=== PATIENT | male | born 1950 | race African-American/Black ===

== ENCOUNTER 2018-08-08 14:46 | Emergency (ER) | payer MEDICARE, OTHER ==
[~2018-08-08] VITALS: Ht 190.5 cm; Wt 83.9 kg
[2018-08-08 15:05] VITALS: BP 144/109
--- NOTE | 2018-08-08 16:22 | NUR ---
PT BIBS C/O LEFT EYE STYE
--- NOTE | 2018-08-08 16:23 | NUR ---
Patient discharged to home in stable condition. Written and verbal after care instructions given. Patient verbalizes understanding of instruction.
== END 2018-08-08 16:23 | disposition home or self-care (01) ==
LOC: ER 14:58
DX: H00.14 Chalazion left upper eyelid (principal); N40.0 Benign prostatic hyperplasia without lower urinary tract symptoms
CPT/HCPCS: Z7502

== ENCOUNTER 2018-09-17 06:48 | Emergency (ER) | payer OTHER ==
[~2018-09-17] VITALS: Ht 190.5 cm; Wt 90.7 kg
--- NOTE | 2018-09-17 07:05 | NUR ---
BIB FROM HOME. AAOX4. NAD. BREAHING EVEN AND UNLABORED. AMBULATORY. C/O CONSISTENT ERECTION FOR THE PAST 3-4 HOURS WITH PAIN OF 12/10. PT ER BED 9. AWAITING MD ORDERS. Addendum: 09/17/18 at 0733 by NANI PT DENIED TAKING ANY ED MEDS. PT REPORTS HE IS TAKING FLOMAX.
--- NOTE | 2018-09-17 07:15 | NUR ---
IV LINE OBTAINED ON R AC 18G. BLOOD DRAWN LAB AT BEDSIDE.
[2018-09-17] MEDS ORDERED: TERBUTALINE SULFATE 1 MG/ML VIAL ONE (07:17)
[2018-09-17 07:24] LABS: BASOPHILS # (AUTO) 0.1 /CMM (0.0-0.2); BASOPHILS % (AUTO) 3.5 % (0.0-2.0); EOSINOPHILS % (AUTO) 4.5 % (0.0-6.0); HEMATOCRIT 40 % (39-51); HEMOGLOBIN 13.6 g/dL (13.5-17.5); LYMPHOCYTES # (AUTO) 0.6 /CMM (0.8-4.8); LYMPHOCYTES % (AUTO) 15.2 % (20.0-44.0); MEAN CORPUSCULAR HGB CONC 34 g/dl (31.0-36.0); MEAN CORPUSCULAR VOLUME 97 fL (80-96); MONOCYTES # (AUTO) 0.1 /CMM (0.1-1.30); NEUTROPHILS # (AUTO) 2.7 /CMM (1.8-8.9); NEUTROPHILS % (AUTO) 72.8 % (43.0-81.0); PLATELET COUNT (AUTO) 217 /CMM (150-450); WHITE BLOOD COUNT (AUTO) 3.7 K/uL (4.3-11.0)
[2018-09-17] MEDS ORDERED: LIDOCAINE 0.5% HCL 50 ML VIAL ONE (07:28)
[2018-09-17] MEDS ORDERED: IV NS 0.9% 500 ML BAG IV ONE (07:30)
[2018-09-17] MEDS ORDERED: LET SOLN TOPICAL 8 ML UDC TP ONE (07:30)
[2018-09-17] MEDS ORDERED: TERBUTALINE SULFATE 1 MG/ML VIAL SQ ONE (07:30)
--- NOTE | 2018-09-17 07:33 | NUR ---
ENDORSEMENT RECEIVED FROM JESS ROMREO FOR ALFREDO
[2018-09-17 07:34] LABS: CALCIUM, SERUM 9.2 mg/dL (8.5-10.1); CREATININE 1.2 mg/dL (0.6-1.3)
--- NOTE | 2018-09-17 07:35 | NUR ---
REPORT GIVEN OT NICK ALVAREZ FOR ALFREDO
[2018-09-17] MEDS ORDERED: PHENYLEPHRINE 10 MG/ML VIAL ONE (08:14)
[2018-09-17] MEDS ORDERED: PHENYLEPHRINE 10 MG/ML VIAL IV ONE (08:30)
--- NOTE | 2018-09-17 09:15 | NUR ---
IV removed. Catheter intact and site benign. Pressure and 4x4 applied to site. No bleeding noted.Patient discharged to home in stable condition. Written and verbal after care instructions given. Patient verbalizes understanding of instruction.
[2018-09-17 09:16] VITALS: BP 162/98
== END 2018-09-17 09:16 | disposition home or self-care (01) ==
LOC: ER 07:02
DX: N48.39 Other priapism (principal); N40.0 Benign prostatic hyperplasia without lower urinary tract symptoms
CPT/HCPCS: 36415; 54220; 80048; 85025; 85730; 96372; 99284; A6402 ×2; J2370; J3105; J3490; J7040

== ENCOUNTER 2022-09-27 16:04 | Emergency (ER) | payer OTHER ==
[~2022-09-27] VITALS: Ht 190.5 cm; Wt 84.8 kg
--- NOTE | 2022-09-27 16:38 | NUR ---
BIBS FOR RIGHT FOOT LACERATION. STEPPED ON GLASS AT HOME. A/O X 3, ABLE TO MAKE NEEDS KNOWN, TOLERATING WELL ON ROOM AIR.
[2022-09-27] MEDS ORDERED: LIDOCAINE 1%-EPI 1:100,000 20 ML VIAL ONE (16:49)
[2022-09-27] MEDS ORDERED: ACETAMINOPHEN ES 500 MG TABLET PO ONE (17:00)
[2022-09-27] MEDS ORDERED: LIDOCAINE 1%-EPI 1:100,000 50 ML VIAL IJ ONE (17:00)
[2022-09-27] MEDS ORDERED: ACETAMINOPHEN ES 500 MG TABLET ONE (17:04)
--- NOTE | 2022-09-27 17:33 | NUR ---
Patient discharged to home in stable condition. Written and verbal after care instructions given. Patient verbalizes understanding of instruction.
[2022-09-27 17:35] VITALS: BP 129/82
== END 2022-09-27 17:35 | disposition home or self-care (01) ==
LOC: ER 16:23
DX: S91.312A Laceration without foreign body, left foot, initial encounter (principal); Z60.2 Problems related to living alone; W25.XXXA Contact with sharp glass, initial encounter; Y93.89 Activity, other specified; Y92.89 Other specified places as the place of occurrence of the external cause; Y99.8 Other external cause status
CPT/HCPCS: 99282; 12001; A6403; J3490